=== PATIENT | male | born 1995 | race Caucasian/White ===

== ENCOUNTER 2021-09-17 11:28 | Emergency (ER) | payer SELFPAY ==
--- NOTE | ~2021-09-17 | XR_ITS ---
EXAMINATION: XR FOREARM, RIGHT CLINICAL INFORMATION: Large branch fell on the right forearm. Pain COMPARISON: None TECHNIQUE: AP and lateral views of the right forearm were obtained. FINDINGS: The bones and soft tissues are normal. No fracture. Imaged portions of the elbow and wrist are unremarkable. XR/XR forearm RT 2V IMPRESSION: Unremarkable right forearm exam
[2021-09-17 11:35] VITALS: BP 127/92; PULSE 80; RESP 18; TEMP 36.6; O2SAT 99; BMI 26.4
--- NOTE | 2021-09-17 13:10 | ED.EXTPRO ---
HPI - Extremity Problem General Chief complaint: Extremity Injury, Upper Stated complaint: ARM INJ Time Seen by Provider: 09/17/21 13:10 Source: patient Mode of arrival: ambulatory History of Present Illness HPI Narrative: 26-year-old male presenting to the ED complaining of right forearm pain s/p large branch falling on arms while cutting down tree with father [employer]. Denies head trauma or LOC. Reports initial numbness/tingling in fingers after incident resolved at present. Reports symptomatic improvement since ED arrival. MD Complaint: extremity pain and extremity swelling Related Data Allergies Allergy/AdvReac Type Severity Reaction Status Date / Time No Known Allergies Allergy Unverified 06/17/20 16:32 Review of Systems Review of Systems: Constitutional: No Fever, No Chills ENT/Mouth: No Ear Pain, No sore throat Cardiovascular: No Chest Pain, No SOB Respiratory: No Cough, No Sputum, No Wheezing Gastrointestinal: No Nausea, No Vomiting, No Diarrhea, No Constipation, No Abdominal pain Musculoskeletal: + joint pain, No Myalgias, + Joint Swelling Skin: No Skin Lesions, No rash Neuro: No Weakness, + Numbness (resolved), + Paresthesias (resolved) Yes all other systems are reviewed and are negative [facility] Past Medical History Attestation statement: The following information was validated with the patient. Physical Exam Vital Signs: Vital Signs: Last Vital Signs Temp 98 F 09/17/21 11:35 Pulse 80 09/17/21 11:35 Resp 18 09/17/21 11:35 BP 127/92 H 09/17/21 11:35 Pulse Ox 99 09/17/21 11:35 BMI result Body Mass Index 26.4 Const: General: cooperative and healthy appearing Orientation/consciousness: patient oriented x3 Limitations: no limitations HENMT: Head: Yes normal to inspection and Yes atraumatic Ears: hearing grossly normal bilaterally General nose exam: Normal external nose present Face and sinus: Yes normal facial exam Eyes: General: appearance normal, both eyes and all related structures EOM: EOMs intact bilaterally Neck: Neck: Yes normal visual inspection and Yes no meningeal signs Resp: Effort & Inspection: normal respiratory effort and no respiratory distress Cardio: Rate: regular rate Peripheral pulses: radial pulses present Skin: Rashes: no rashes Wounds: no wounds Neuro: General: patient oriented x3 and no meningeal signs Gait exam (Neuro): Normal gait present Extrem: Other: Right shoulder and elbow nontender with full range of motion intact. Right proximal forearm radial aspect with mild swelling and tenderness to palpation. No ecchymosis or cellulitis. Neurovascular intact distally Right wrist/hand nontender with full range of motion. Course Course Course Narrative: XR forearm RT 2V IMPRESSION: Unremarkable right forearm exam >> results discussed with patient including worrisome signs and symptoms and strict return precautions. MDM - Extremity (Nontraumatic) MDM Narrative Medical decision making narrative: 26-year-old male presenting to the ED complaining of right forearm pain s/p large branch falling on arms while cutting down tree with father [employer]. On exam vital signs stable, NAD, physical exam as above. Rule out fracture versus hematoma versus contusion Plan: X-rays Medical Records Attestation: I reviewed the patient's medical records. Lab Data Attestation: I reviewed the patient's lab results. Discharge Plan Discharge Clinical Impression: Forearm injury Qualifiers: Encounter type: initial encounter Laterality: right Qualified Code(s): S59.911A - Unspecified injury of right forearm, initial encounter Patient Disposition: Home, Self-Care Instructions: Hematoma (ED) Additional Instructions: Your x-rays are unremarkable Take Tylenol and Motrin at home for pain and swelling Ice and elevate Rest Follow-up with her doctor as needed If pain becomes unbearable, have numbness/tingling or weakness, return to the ED Referrals: Physician,Xavier J [Primary Care Provider] - 1 week (As needed)
== END 2021-09-17 13:52 | disposition home or self-care (01) ==
PROVIDERS: Emergency Provider Emergency Medicine
DX: S59.911A Unspecified injury of right forearm, initial encounter (principal); W20.8XXA Other cause of strike by thrown, projected or falling object, initial encounter; Y93.9 Activity, unspecified; Y92.9 Unspecified place or not applicable; Y99.9 Unspecified external cause status
CPT/HCPCS: 73090; 99283